=== PATIENT | female | born 1935 | race Two or more races ===

== ENCOUNTER 2022-11-22 10:49 | Emergency (ER) | payer OTHER ==
[~2022-11-22] VITALS: Ht 154.9 cm; Wt 81.6 kg
[2022-11-22] MEDS ORDERED: ATORVASTATIN CA40 MG PO (11:02)
[2022-11-22] MEDS ORDERED: CLONAZEPAM0.5 MG PO (11:03)
[2022-11-22] MEDS ORDERED: GLIMEPIRIDE2 M1 PO (11:03)
[2022-11-22] MEDS ORDERED: IRBESARTAN300 MG PO (11:03)
[2022-11-22] MEDS ORDERED: JANUVIA100 MG PO (11:03)
[2022-11-22] MEDS ORDERED: VITAMIN D310 MC6 PO (11:04)
[2022-11-22] MEDS ORDERED: PEPCID20 MG PO (11:04)
[2022-11-22] MEDS ORDERED: KAPSPARGO SPRIN25 MG PO (11:04)
== END 2022-11-22 14:25 | disposition home or self-care (01) ==
LOC: ER 10:49
DX: S90.414A Abrasion, right lesser toe(s), initial encounter (principal); E11.9 Type 2 diabetes mellitus without complications; Z79.84 Long term (current) use of oral hypoglycemic drugs

== ENCOUNTER → 2023-06-26 | Emergency (ER) | payer OTHER ==
[~2023-06-26] VITALS: Ht 154.9 cm; Wt 81.2 kg
[~2023-06-26] MED LIST: ATORVASTATIN CA40 MG PO; CLONAZEPAM0.5 MG PO; GLIMEPIRIDE1 M1 PO; GLIMEPIRIDE2 M1 PO; IRBESARTAN300 MG PO; JANUVIA100 MG PO; KAPSPARGO SPRIN25 MG PO; PEPCID20 MG PO; PLAVIX75 MG PO; VITAMIN D310 MC6 PO; ZOLOFT100 MG PO
== END | disposition home or self-care (01) ==
LOC: ER 09:58
DX: S40.012A Contusion of left shoulder, initial encounter (principal); W18.30XA Fall on same level, unspecified, initial encounter; Y93.9 Activity, unspecified; Y92.89 Other specified places as the place of occurrence of the external cause; Y99.9 Unspecified external cause status; E11.9 Type 2 diabetes mellitus without complications; Z79.84 Long term (current) use of oral hypoglycemic drugs; I10 Essential (primary) hypertension; Z85.828 Personal history of other malignant neoplasm of skin